=== PATIENT | male | born 1960 | race Caucasian/White ===

== ENCOUNTER 2022-08-04 18:11 | Emergency (ER) | payer OTHER ==
[2022-08-04] MEDS ORDERED: XYLOCAINE 1% HCL 20 ML MDV ONE (18:18)
[2022-08-04 18:27] VITALS: PULSE 92; O2SAT 98
[2022-08-04] MEDS ORDERED: KEFZOL 1 GM IM ONE (18:36)
[2022-08-04] MEDS ORDERED: KEFZOL 1 GM ONE (18:42)
[2022-08-04] MEDS ORDERED: Sterile H2O 10 ml IJ ONE (18:43)
[2022-08-04 19:29] VITALS: BP 153/103
[2022-08-04] MEDS ORDERED: Adacel Vial IM ONE ×2 (19:40→19:49)
--- NOTE | 2022-08-04 19:44 | ERPHSYRPT ---
- History of Present Illness Time Seen by Provider: 08/04/22 18:23 Source: patient Exam Limitations: no limitations Patient Subjective Stated Complaint: Pt states "I was cutting down a tree and it has really rough bark and the tree came back and hit my leg cutting it" Triage Nursing Assessment: PT presented alert and oriented xc 3, skin pwd. Pt ambulates with a limp pt has a large skin tear noted to left lateral leg. slight bleeding noted. Physician History: 62-year-old male presented in the ER after a tree branch fell on his left outer leg with a superficial flap laceration with slow oozing prior to arrival. Gwendolyn ruiz walked in the ER without any limitation. Patient is complaining of mild to moderate pain. Timing/Duration: today, sudden Quality: painful Severity: mild, moderate Location: extremities Possible Causes: other Allergies/Adverse Reactions: NSAIDS (Non-Steroidal Anti-Inflamma Allergy (Severe, Verified 08/04/22 18:27) Shortness of Breath Home Medications: Albuterol Sulfate [Albuterol Sulfate Hfa] 1 puff IH DAILY 08/04/22 [History] Fluticasone Propion/Salmeterol [Fluticasone-Salmeterol 500-50] 1 unit IH DAILY 08/04/22 [History] Prednisone 5 mg [Deltasone 5 mg] 5 mg PO DAILY 08/04/22 [History] Hx Tetanus, Diphtheria Vaccination/Date Given: No Hx Influenza Vaccination/Date Given: No Hx Pneumococcal Vaccination/Date Given: No Immunizations Up to Date: Yes Travel Risk - International Travel Have you traveled outside of the country in past 3 weeks: No - Coronavirus Screening Are you exhibiting any of the following symptoms?: No Close contact with a COVID-19 positive Pt in past 14-21 Days: No - Vaccine Status Have you recieved a Covid-19 vaccination: Yes [employer]: [employer] - Vaccination Dates Date of 2cond Vaccination (if applicable): 2020 - Review of Systems Constitutional: No Symptoms Ears, Nose, & Throat: No Symptoms Respiratory: No Symptoms Cardiac: No Symptoms Abdominal/Gastrointestinal: No Symptoms Genitourinary Symptoms: No Symptoms Musculoskeletal: Injury Skin: Skin Lesions Neurological: No Symptoms Hematologic/Lymphatic: No Symptoms Immunological/Allergic: No Symptoms - Past Medical History Pertinent Past Medical History: Yes Neurological History: Other Cardiac History: No Pertinent History Respiratory History: Asthma Endocrine Medical History: No Pertinent History Musculoskeletal History: No Pertinent History Other Medical History: SOME NUMBNESS INTO THE R 3RD, 4TH AND 5TH FINGERS. - Past Surgical History Past Surgical History: Yes Other Surgical History: nasal polyps removed - Social History Smoking Status: Never smoker Exposure to second hand smoke: No Drug Use: none Patient Lives Alone: No - Nursing Vital Signs Nursing Vital Signs: Initial Vital Signs Temperature 98.2 F 08/04/22 18:16 Pulse Rate 92 H 08/04/22 18:16 Respiratory Rate 20 08/04/22 18:16 Blood Pressure 168/114 08/04/22 18:16 O2 Sat by Pulse Oximetry 98 08/04/22 18:16 Pain Scale Pain Intensity 2 - Physical Exam General Appearance: no apparent distress, alert Eye Exam: PERRL/EOMI Neck Exam: normal inspection, full range of motion Respiratory Exam: normal breath sounds, lungs clear Cardiovascular Exam: regular rate/rhythm, normal heart sounds Extremity Exam: lacerations (Flap laceration with curve almost 23 cm in the left anterolateral leg. Minimal oozing. No bony tenderness.), tenderness, No limited range of motion Neurologic Exam: alert, oriented x 3, cooperative Skin Exam: normal color SpO2 Interpretation: normal SpO2: 98 O2 Delivery: Room Air Procedures - Laceration/Wound Repair Left Dorsal Calf Time of Procedure: 19:12 Wound Location: Left Wound Length (cm): 23 Wound's Depth, Shape: superficial, flap Wound Explored: contaminated Irrigated: Yes Hibiclens Prep: Yes Anesthesia: 1% Lidocaine Volume Anesthetic (ccs): 15 Wound Repaired With: sutures Suture Size/Type: 4-0, 3-0, nylon Number of Sutures: 13 Layer Closure?: No Sterile Dressing Applied?: Yes Ordered Tests: Active Orders 24 hr Category Date Time Status LOWER LEG Stat Exams 08/04/22 19:09 Ordered Medication Summary Discontinued Medications Generic Name Dose Route Start Last Admin Trade Name Freq PRN Reason Stop Dose Admin Cefazolin Sodium 1 g 08/04/22 18:36 08/04/22 18:44 Cefazolin Sodium 1 Gm Vial IM 08/04/22 18:37 1 g STAT ONE Administration Cefazolin Sodium Confirm 08/04/22 18:42 Cefazolin Sodium 1 Gm Vial Administered 08/04/22 18:43 Dose 1 g .ROUTE .STK-MED ONE Lidocaine HCl Confirm 08/04/22 18:18 Lidocaine Hcl 1% 20 Ml Mdv 20 Ml Ml Administered 08/04/22 18:19 Dose 1 ml .ROUTE .STK-MED ONE Sterile Water Confirm 08/04/22 18:43 Water For Injection,Sterile 10 Ml Vial Administered 08/04/22 18:44 Dose 10 ml IJ .STK-MED ONE - Progress Progress: improved Progress Note: 08/04/22 19:43 62-year-old is evaluated for left lower extremity flap laceration after a tree branch fell on him which she was cutting earlier at home. Superficial with oozing and no active spurting. Distal neurovascular intact. Part of it is a skin tear, laceration repaired with stitches and has some exposed raw area due to retraction of skin downwards. Given a dose of antibiotic and updated tetanus. Recommended x-rays which patient refused and he does understand the risk of not doing x-rays. Recommended being off it left lower extremity as much as possible to avoid opening of stitches. Wound care and wound care follow-up discussed. Counseled pt/family regarding: diagnosis, need for follow-up Medical Desision Making - Risk of complications The pt has a mod risk of morbidity or mortality based on: Need for prescription drug management, Need for minor surgical intervention in patient with know risk factors - Departure Departure Disposition: Home Clinical Impression: Leg laceration Condition: Stable Critical Care Time: No Referrals: MARION RAYMOND, HERMANN [Primary Care Provider] - Follow up with PCP 1 day Instructions: Wound Care (DC) Additional Instructions: Take pain medications as needed. Elevation, intermittent ice application, avoid exertional activities, follow-up with primary care and wound care. Return to ER for increasing pain swelling redness discharge/difficulty movements of the ankle or bluish discoloration of toes etc. Prescriptions: Oxycodone HCl/Acetaminophen [Percocet 5-325 mg Tablet] 1 each PO Q6-8HPRN PRN 3 Days #9 tablet MDD 20MG PRN Reason: Pain
[2022-08-04] MEDS ORDERED: NORCO 5/325 MG PO ONE (19:47)
[2022-08-04] MEDS ORDERED: NORCO 5/325 MG ONE (19:49)
== END 2022-08-04 20:09 | disposition home or self-care (01) ==
LOC: ED 18:11
DX: S81.812A Laceration without foreign body, left lower leg, initial encounter (principal); W45.8XXA Other foreign body or object entering through skin, initial encounter; Z79.899 Other long term (current) drug therapy; Z20.828 Contact with and (suspected) exposure to other viral communicable diseases; Z23 Encounter for immunization
CPT/HCPCS: 12006; 90471; 90715; 96372; 99283; J0690; A9270-GY